=== PATIENT | female | born 2000 | race Caucasian/White ===

== ENCOUNTER 2022-10-18 15:13 | Inpatient (IN) ==
[2022-10-18 15:52] LABS: Basophils # (auto) 0.04 K/uL (0-0.2); Basophils % (auto) 0.6 %; Hematocrit (blood only) 36.4 % (37.0-47.0); Hemoglobin 12.6 g/dl (12.0-16.0); Immature Granulocytes # (auto) 0.03 K/uL (0.01-0.20); Immature Granulocytes % (auto) 0.4 %; Lymphocytes # (auto) 0.78 K/uL (1.2-3.4); Lymphocytes % (auto) 11.6 %; Mean Corpuscular Hemoglobin 27.6 pg (25.0-34.0); Mean Corpuscular Hgb Conc 34.6 g/dL (32.0-36.0); Mean Corpuscular Volume 79.8 fL (80.0-100.0); Monocytes # (auto) 0.35 K/uL (0.11-0.59); Monocytes % (auto) 5.2 %; Neutrophils # (auto) 5.53 K/uL (1.40-6.50); Neutrophils % (auto) 82.2 %; Platelet Count 312 K/uL (130-400); RDW Coefficient of Variation 13.1 % (11.5-14.5); RDW Standard Deviation 37.4 fL (36.4-46.3); Red Blood Count 4.56 M/uL (4.20-5.40); White Blood Count 6.73 K/ul (4.8-10.8)
[2022-10-18 16:09] LABS: Albumin Globulin Ratio 1.6 (0.9-2); Albumin Level 4.6 gm/dl (3.4-5.0); BUN Creatinine Ratio 16.2 (10-20); Bilirubin,Total 0.6 mg/dl (0.2-1.0); Calcium 9.8 mg/dl (8.6-10.3); Creatinine Clr Calc Pharmacy 109.8 ml/min; Est GFR (African American) 145.9 ml/min; Est GFR (Non-African American) 125.9 ml/min; Globulin 2.9 gm/dl (2.5-4.0); Total Protein 7.5 gm/dl (6.0-8.3)
[2022-10-18] MEDS ORDERED: SODIUM CHLORIDE 0.9% 1000ML 1,000 ML IV SCH (19:31)
[2022-10-18] MEDS ORDERED: LORazepam 2 MG/1 ML VIAL IV STA (19:31)
[2022-10-18] MEDS ORDERED: BENZTROPINE MESYLATE 1 MG/ML 2 ML AMP IM STA (19:31)
--- NOTE | 2022-10-18 19:41 | Emergency Department Note ---
Impression & Plan Dystonic drug reaction, Rhabdomyolysis ED Provider Note ED Provider Note NAME: MANDA EMMANUEL AGE:22 SEX: Female : 2000 ARRIVES VIA: Private vehicle INFORMANT: Patient, sister, mother ED PROVIDER(s): Jacklyn Ochoa DO CHIEF COMPLAINT: Clenching of jaw, weakness and shaking in arms and legs HPI: This is a 22-year-old female who presents emergency department due to concern for increased clenching of her jaw as well as weakness and shaking of her arms and legs. Patient states symptoms began this morning during class. She states she left and went home and symptoms continued to worsen. Patient's mother states she was seen and evaluated here 2 days ago due to significant alcohol intoxication. Upon review of this note at bedside, it was seen the patient was given Haldol and Ativan due to increased combative behavior likely secondary to alcohol intoxication. No prior similar reactions. Sister states s he did not have much to eat or drink yesterday and is also concerned about dehydration. No other recent trauma, no new medications otherwise. No recent fevers, chills, or illness. No history of hyperventilation. No history of seizures. PAST MEDICAL HISTORY:See Below PAST SURGICAL HISTORY:See Below FAMILY HISTORY:See Below SOCIAL HISTORY:See Below HOME MEDICATIONS:See Below ALLERGIES:See Below VITALS:See Below PHYSICAL EXAMINATION: GENERAL: alert, anxious appearing, well nourished, moderate distress EYE EXAM: normal conjunctiva, PERRL and EOM's grossly intact OROPHARYNX: Lips appear moist, normal-appearing dentition, patient unable to voluntarily open mouth for further evaluation NECK: supple, no nuchal rigidity, no adenopathy, non-tender, no stridor LUNGS: Clear to auscultation. Normal chest wall mechanics, no w/r/r HEART: no murmurs, S1 normal and S2 normal ABDOMEN: abdomen soft, non-tender, normo-active bowel sounds, no masses, no rebound or guarding. BACK: Back is symmetrical on inspection and there is no deformity, no midline tenderness, no CVA tenderness. SKIN: no rashes, petechiae, orbruising UPPER EXTREMITIES: upper extremities are grossly normal. FROM, nml pulses b/l. No evidence of trauma or deformity, mild appearance of carpal spasm noted bilaterally right greater than left LOWER EXTREMITIES: No pitting edema. FROM, nml pulses b/l. No evidence of trauma or deformity. Bilateral lower extremities with tense leg muscles and tremors NEURO EXAM: Normal sensorium, cranial nerves II-XII grossly intact, normal speech, no facial droop,nogross weakness of arms, no gross weakness of legs. Gross sensation intact. No ataxia. Vital Signs: reviewed and remarkable Differential Diagnosis: Dystonic reaction, hyperventilatory syndrome, seizure, electrolyte abnormality, dehydration, rhabdomyolysis, as well as others were considered MEDICAL DECISION MAKING: Patient has no contribute family history. Patient was first seen and observation began at 193 and was necessary in order to evaluate and treat the patient's symptoms, monitor for recurrence, as well as hydrate due to rhabdomyolysis. Upon re-evaluation, 6 hours of observation revealed that the patient should be admitted. Discharge from observation at 0200. This is a 22-year-old female presents emergency department due to concern for muscle tension and shaking. No history of seizures or hyperventilatory syndrome with carpopedal spasm. After mother and sister reported the patient had been seen here and was given additional medication while she was intoxicated we did review the ER visit at bedside that showed patient did receive Haldol and Ativan. I suspect this was perhaps a dystonic reaction in addition to dehydration. There may be a component of anxiety and hyperventilatory syndrome although this seems far more generalized. I do not suspect occult infectious etiology. Patient did not have true trismus. Labs drawn and sent, IV established, IV fluids started, and patient given IV Ativan and Cogentin IM. Patient had resolution of symptoms and was markedly improved. Vital signs monitored and IV fluids continued. Initial CK elevated, and a recheck after 2 L of fluids was further increased. I discussed all results with patient and mother at bedside. We discussed additional inpatient monitoring and treatment versus additional IV fluids and repeat CK in the ER. They preferred continued ER monitoring so this was performed. After he had third L and a repeat CK was still trending upward. At this time we discussed additional inpatient evaluation and management. Case discussed with hospitalist. Consultation(s): 229: Discussed with Dr. Finney. ER Treatment Provided: See below Diagnostics Interpreted By Me: -ECG: [] -Cardiac Monitoring: An order was placed for continuous cardiac monitoring. The monitor shows a rate of 98 with normal sinus rhythm. -Laboratory studies: As stated above and show below. -Imaging studies: [] Triage Nursing Note Reviewed Prior/Outside Records Reviewed -prior labs reviewed Past Med/Surg History Medical History Celiac disease Surgical History History of esophagogastroduodenoscopy Family History Father Hypertension Grandfather (Paternal) Hypertension Mother Gluten intolerance Asthma Family/Other Gluten intolerance maternal cousin-not Celiac disease Sister Asthma Other No family history of adverse response to anesthesia No family history of bleeding disorder Social History Smoking Status: Never smoker Hx Alcohol Use: Yes Alcohol Intake Frequency Comment: occasional Hx Substance Use: No marital status: Single current occupational status: student Feels Safe at Home: Yes Safety Concerns Comment: Once sober, the patient did answer the questions stating that she had no co Allergies Allergies Allergy/AdvReac Type Severity Reaction Status Date / Time gluten AdvReac Gastrointestinal Verified 10/18/22 21:40 Upset Home Meds Home Medications Medication Instructions Recorded Confirmed minocycline 100 mg tablet 100 mg PO BID 10/18/22 10/18/22 norgestimate 0.18 mg/0.215 mg/0.25 1 tab PO DAILY 10/18/22 10/18/22 mg-ethinyl estradiol 25 mcg tablet ([id number]) Results & Data (ED) Vital Signs Vital Signs - 24 hr 10/18/22 15:22 10/18/22 19:15 10/18/22 20:10 Temperature 36.8 C Temperature Source Temporal Artery Scan Pulse Rate 133 H 97 H Pulse Rate [Apical] 116 H Pulse Rate from SpO2 Sensor 99 H Pulse Rhythm Regular Pulse Rhythm [Apical] Regular Pulse Strength [Apical] Normal Respiratory Rate 20 32 H 18 Respiratory Effort / Characteristics Non-Labored Spontaneous Labored Respiratory Depth Normal Shallow Respiratory Pattern Tachypnea Blood Pressure 156/98 H 119/74 Blood Pressure [Right Arm] 153/89 H Blood Pressure Mean 117 89 Blood Pressure Mean [Right Arm] 110 Blood Pressure Position [Right Arm] Pulse Oximetry 99 99 Oxygen Delivery Method Room Air Room Air Sepsis Recent Fever Within 48 Hours No Sepsis New/Unexplained Change in Mental Status No Sepsis Action Taken by Nursing No Action Required 10/18/22 20:30 10/18/22 21:00 10/18/22 21:30 Temperature Temperature Source Pulse Rate 86 97 H 88 Pulse Rate [Apical] Pulse Rate from SpO2 Sensor 93 H 96 H 89 Pulse Rhythm Pulse Rhythm [Apical] Pulse Strength [Apical] Respiratory Rate 21 21 19 Respiratory Effort / Characteristics Respiratory Depth Respiratory Pattern Blood Pressure 118/74 Blood Pressure [Right Arm] Blood Pressure Mean 88 Blood Pressure Mean [Right Arm] Blood Pressure Position [Right Arm] Pulse Oximetry 98 100 99 Oxygen Delivery Method Sepsis Recent Fever Within 48 Hours Sepsis New/Unexplained Change in Mental Status Sepsis Action Taken by Nursing 10/18/22 20:10 10/18/22 23:36 10/19/22 00:10 Temperature Temperature Source Pulse Rate 96 H 91 H Pulse Rate [Apical] 79 Pulse Rate from SpO2 Sensor Pulse Rhythm Pulse Rhythm [Apical] Regular Pulse Strength [Apical] Normal Respiratory Rate 20 Respiratory Effort / Characteristics Non-Labored Spontaneous Respiratory Depth Normal Respiratory Pattern Regular Blood Pressure Blood Pressure [Right Arm] 130/86 Blood Pressure Mean Blood Pressure Mean [Right Arm] 100 Blood Pressure Position [Right Arm] Sitting Pulse Oximetry 98 Oxygen Delivery Method Room Air Sepsis Recent Fever Within 48 Hours Sepsis New/Unexplained Change in Mental Status Sepsis Action Taken by Nursing Laboratory Data 10/18/22 15:29 10/18/22 15:29 Lab Results 10/18/22 10/18/22 10/18/22 Range/Units 15:29 15:29 19:31 WBC 6.73 (4.8-10.8) K/ul RBC 4.56 (4.20-5.40) M/uL Hgb 12.6 (12.0-16.0) g/dl Hct 36.4 L (37.0-47.0) % MCV 79.8 L (80.0-100.0) fL MCH 27.6 (25.0-34.0) pg MCHC 34.6 (32.0-36.0) g/dL RDW Std Deviation 37.4 (36.4-46.3) fL RDW Coeff of Fausto 13.1 (11.5-14.5) % Plt Count 312 (130-400) K/uL MPV 10.0 (9.4-12.4) fL Immature Gran % (Auto) 0.4 % Neut % (Auto) 82.2 % Lymph % (Auto) 11.6 % Falls % (Auto) 5.2 % Eos % (Auto) 0.0 % Baso % (Auto) 0.6 % Neut # (Auto) 5.53 (1.40-6.50) K/uL Lymph # (Auto) 0.78 L (1.2-3.4) K/uL Falls # (Auto) 0.35 (0.11-0.59) K/uL Eos # (Auto) 0.00 (0-0.50) K/uL Baso # (Auto) 0.04 (0-0.2) K/uL Immature Gran # (Auto) 0.03 (0.01-0.20) K/uL Sodium 135 L D (136-145) mmol/L Potassium 4.0 (3.5-5.1) mmol/L Chloride 104 (98-107) mmol/L Carbon Dioxide 20 L (21-32) mmol/L Anion Gap 11 (3-11) BUN 11 (6-23) mg/dl Creatinine 0.68 (0.6-1.2) mg/dl Est Cr Clr Drug Dosing 109.8 ml/min Est GFR ( Amer) 145.9 ml/min Est GFR (Non-Af Amer) 125.9 ml/min BUN/Creatinine Ratio 16.2 (10-20) Glucose 118 H (70-99(Fasting)) mg/dl Calcium 9.8 (8.6-10.3) mg/dl Magnesium 2.0 Cancelled (1.7-2.4) mg/dl Total Bilirubin 0.6 (0.2-1.0) mg/dl AST 52 H (13-39) U/L ALT 24 (7-52) U/L Alkaline Phosphatase 109 H (34-104) U/L Total Creatine Kinase 1514 H Cancelled (26-192) U/L Total Protein 7.5 (6.0-8.3) gm/dl Albumin 4.6 (3.4-5.0) gm/dl Globulin 2.9 (2.5-4.0) gm/dl Albumin/Globulin Ratio 1.6 (0.9-2) 10/18/22 10/19/22 Range/Units 22:28 01:26 WBC (4.8-10.8) K/ul RBC (4.20-5.40) M/uL Hgb (12.0-16.0) g/dl Hct (37.0-47.0) % MCV (80.0-100.0) fL MCH (25.0-34.0) pg MCHC (32.0-36.0) g/dL RDW Std Deviation (36.4-46.3) fL RDW Coeff of Fausto (11.5-14.5) % Plt Count (130-400) K/uL MPV (9.4-12.4) fL Immature Gran % (Auto) % Neut % (Auto) % Lymph % (Auto) % Falls % (Auto) % Eos % (Auto) % Baso % (Auto) % Neut # (Auto) (1.40-6.50) K/uL Lymph # (Auto) (1.2-3.4) K/uL Falls # (Auto) (0.11-0.59) K/uL Eos # (Auto) (0-0.50) K/uL Baso # (Auto) (0-0.2) K/uL Immature Gran # (Auto) (0.01-0.20) K/uL Sodium (136-145) mmol/L Potassium (3.5-5.1) mmol/L Chloride (98-107) mmol/L Carbon Dioxide (21-32) mmol/L Anion Gap (3-11) BUN (6-23) mg/dl Creatinine (0.6-1.2) mg/dl Est Cr Clr Drug Dosing ml/min Est GFR ( Amer) ml/min Est GFR (Non-Af Amer) ml/min BUN/Creatinine Ratio (10-20) Glucose (70-99(Fasting)) mg/dl Calcium (8.6-10.3) mg/dl Magnesium (1.7-2.4) mg/dl Total Bilirubin (0.2-1.0) mg/dl AST (13-39) U/L ALT (7-52) U/L Alkaline Phosphatase (34-104) U/L Total Creatine Kinase 1725 H 1859 H (26-192) U/L Total Protein (6.0-8.3) gm/dl Albumin (3.4-5.0) gm/dl Globulin (2.5-4.0) gm/dl Albumin/Globulin Ratio (0.9-2) Administered Medications Discontinued Medications Benztropine Mesylate (Benztropine Mesylate 1 Mg/Ml 2 Ml Amp) 1 mg IM NOW STA Stop: 10/18/22 19:32 Last Admin: 10/18/22 19:40 Dose: 1 mg Documented By: RSCaroline Sodium Chloride (Nss 1000ml) 1,000 mls @ 999 mls/hr IV .Q1H1M RAS Stop: 10/18/22 20:31 Last Infusion: 10/18/22 20:10 Dose: 0 mls/hr Documented By: Admin: 10/18/22 19:41 Dose: 999 mls/hr Documented By: RSCaroline Lactated Ringer's (Lr) 1,000 mls @ 999 mls/hr IV .Q1H1M ONE Stop: 10/19/22 00:30 Last Infusion: 10/19/22 01:24 Dose: 0 mls/hr Documented By: Admin: 10/18/22 23:34 Dose: 999 mls/hr Documented By: KISHORE Lactated Ringer's (Lr) 1,000 mls @ 999 mls/hr IV .Q1H1M ONE Stop: 10/19/22 02:55 Last Admin: 10/19/22 02:32 Dose: 200 mls/hr Documented By: KISHORE Lorazepam (Lorazepam 2 Mg/1 Ml Vial) 1 mg IV NOW STA Stop: 10/18/22 19:32 Last Admin: 10/18/22 19:40 Dose: 1 mg Documented By: RSCaroline Discharge Plan Visit Data Chief Complaint: Illness Stated Complaint: NOT EATING, NOT SLEEPING ED Provider: Jacklyn Ochoa Discharge Problem: Dystonic drug reaction, Rhabdomyolysis Patient Disposition: Being Evaluated by Hospitalist Forms Stand Alone Forms: My [facility] Prescriptions Prescriptions: No Action minocycline 100 mg tablet 100 mg PO BID norgestimate-ethinyl estradiol [[id number]] 0.18/0.215/0.25 mg-25 mcg tablet 1 tab PO DAILY Rx Instructions: +EDSA Referrals [facility] [Non-Staff] -
[2022-10-18] MEDS ORDERED: LACTATED RINGER'S 1,000 ML IV ONE (23:30)
[2022-10-19] MEDS ORDERED: LACTATED RINGER'S 1,000 ML IV ONE (01:55)
[2022-10-19] MEDS ORDERED: ACETAMINOPHEN 325 MG TAB PO PRN (05:14)
[2022-10-19] MEDS: LACTATED RINGER'S 1,000 ML IV SCH ×3 (05:28→23:01)
--- NOTE | 2022-10-19 05:29 | History & Physical Report ---
Date of Service October 19, 2022 Assessment & Plan (1) Dystonic drug reaction: Plan: 22-year-old female presenting with dystonic reaction likely secondary to Haldol received earlier. Symptoms have improved with benztropine, Ativan and IV fluids. Continue to monitor for abnormal muscle movements Avoidance of Haldol or other agents that can cause EPS (2) Rhabdomyolysis: Plan: Patient with elevated CK17 20 11/02/1858 despite 3 L of IV fluid. Likely secondary to #1. Patient is dystonic reaction has seemingly resolved at this time. Continue IV fluid, LR at 125 mL/h x 2 L Repeat CK Admission and Anticipated Discharge Date Admission Date: October 19, 2022 History of Present Illness Chief Complaint: Muscle spasm Primary Care Provider: NOEMY Low Is a 22-year-old female with history of celiac disease presenting with uncontrolled muscle movements. Patient was seen in the [facility] 10/17/2022 due to acute alcohol intoxication and combative behavior. She was administered Haldol 10 mg IM at 02: 48 as well as Ativan 2 mg IM for control of agitated symptoms. She was ultimately discharged home. On 10/18/2022 patient was in class when she began to develop some stiffness and tightness in her jaw than hands.She reports feeling that her entire body, all of her muscles felt tense. She felt jittery like she was going to have a panic attack. She tried to walk home after class but reports that she was unable to walk effectively because her muscles were not responding properly.Her sister was with her after class and became concerned with the persistent abnormal muscle movements. Patient also began to develop twisting of her neck and blurry vision. She therefore came to the emergency room. Upon ER evaluation it was recognized that patient was having an acute dystonic reaction likely secondary to the Haldol she received previously. She was administered benztropine 1 mg IM with improvement in her symptoms. Initial CK was found to be elevated at 1725. Patient was administered 3 L of LR. Repeat CK increased to 1859. Patient presently feels back to normal. She denies any muscle pain or weakness. She denies any visual disturbances. No additional complaints at this time ER course: Benztropine LR x3 L Ativan Allergies Allergy/AdvReac Type Severity Reaction Status Date / Time gluten AdvReac Gastrointestinal Verified 10/18/22 21:40 Upset Home Medications Medication Instructions Recorded Confirmed Type minocycline 100 mg tablet 100 mg PO BID 10/18/22 10/18/22 History norgestimate 0.18 mg/0.215 mg/0.25 1 tab PO DAILY 10/18/22 10/18/22 History mg-ethinyl estradiol 25 mcg tablet ([id number]) Past Med/Surg History Medical History Celiac disease Surgical History History of esophagogastroduodenoscopy Family History Father Hypertension Grandfather (Paternal) Hypertension Mother Gluten intolerance Asthma Family/Other Gluten intolerance maternal cousin-not Celiac disease Sister Asthma Other No family history of adverse response to anesthesia No family history of bleeding disorder Social History Smoking Status: Never smoker Hx Alcohol Use: Yes Alcohol Intake Frequency Comment: occasional Hx Substance Use: No marital status: Single current occupational status: student Feels Safe at Home: Yes Safety Concerns Comment: Once sober, the patient did answer the questions stating that she had no co Review of Systems Review of Systems: All systems reviewed & are unremarkable except as noted in HPI & below Physical Exam Physical Exam: General: patient resting comfortably, NAD, non-toxic in appearance, AA&O x 4 Skin: warm, dry, intact, no rashes or lesions HEENT: NC/AT, PERRL, EOMI, anicteric sclera, conjunctiva without injection, external ear normal to inspection and nontender, nares patent, moist mucus membranes, dentition intact, no oropharyngeal lesions, neck supple, trachea midline, no LAD, no thyromegaly, no JVD Heart: +S1/S2, regular, no m/r/g Lungs: equal air entry bilaterally, no rales/rhonchi/wheezes Abd: +BS, soft, NT/ND, no masses/organomegaly/ascites Ext: warm, 2+ pulses in UE/LE bilaterally, no clubbing/cyanosis or edema Neuro: nonfocal, patient AA&O x 4, speech intact, no facial droop, moving all extremities on command with equal strength 5/5 Normal muscle strength and movement Results & Data Results & Data Vital Signs (Past 12 Hours) Vital Signs Pulse Pulse Resp BP BP Pulse Ox O2 Del Method 10/19/22 04:10 68 10/19/22 00:10 91 H 10/18/22 23:36 79 20 130/86 98 Room Air 10/18/22 20:10 96 H 10/18/22 21:30 88 19 118/74 99 10/18/22 21:00 97 H 21 100 10/18/22 20:30 86 21 98 10/18/22 20:10 97 H 18 119/74 99 10/18/22 19:15 116 H 32 H 153/89 H Room Air Laboratory Results Laboratory Results WBC 6.73 K/ul (4.8-10.8) 10/18/22 15: RBC 4.56 M/uL (4.20-5.40) 10/18/22 15: Hgb 12.6 g/dl (12.0-16.0) 10/18/22 15: Hct 36.4 % (37.0-47.0) L 10/18/22 15: MCV 79.8 fL (80.0-100.0) L 10/18/22 15: MCH 27.6 pg (25.0-34.0) 10/18/22 15: MCHC 34.6 g/dL (32.0-36.0) 10/18/22 15: RDW Std Deviation 37.4 fL (36.4-46.3) 10/18/22 15: RDW Coeff of Fausto 13.1 % (11.5-14.5) 10/18/22 15: Plt Count 312 K/uL (130-400) 10/18/22 15: MPV 10.0 fL (9.4-12.4) 10/18/22 15: Immature Gran % (Auto) 0.4 % 10/18/22 15: Neut % (Auto) 82.2 % 10/18/22: Lymph % (Auto) 11.6 % 10/18/22: Preston % (Auto) 5.2 % 10/18/22: Eos % (Auto) 0.0 % 10/18/22 15: Baso % (Auto) 0.6 % 10/18/22 15: Neut # (Auto) 5.53 K/uL (1.40-6.50) 10/18/22 15: Lymph # (Auto) 0.78 K/uL (1.2-3.4) L 10/18/22 15: Preston # (Auto) 0.35 K/uL (0.11-0.59) 10/18/22 15: Eos # (Auto) 0.00 K/uL (0-0.50) 10/18/22 15: Baso # (Auto) 0.04 K/uL (0-0.2) 10/18/22 15: Immature Gran # (Auto) 0.03 K/uL (0.01-0.20) 10/18/22 15: Sodium 135 mmol/L (136-145) L D 10/18/22 15: Potassium 4.0 mmol/L (3.5-5.1) 10/18/22 15: Chloride 104 mmol/L (98-107) 10/18/22 15: Carbon Dioxide 20 mmol/L (21-32) L 10/18/22 15:29 Anion Gap 11 (3-11) 10/18/22 15: BUN 11 mg/dl (6-23) 10/18/22 15: Creatinine 0.68 mg/dl (0.6-1.2) 10/18/22 15: Est Cr Clr Drug Dosing 109.8 ml/min 10/18/22 15:29 Est GFR ( Amer) 145.9 ml/min 10/18/22 15:29 Est GFR (Non-Af Amer) 125.9 ml/min 10/18/22 15:29 BUN/Creatinine Ratio 16.2 (10-20) 10/18/22 15: Glucose 118 mg/dl (70-99(Fasting)) H 10/18/22 15:29 Calcium 9.8 mg/dl (8.6-10.3) 10/18/22 15: Magnesium Cancelled 10/18/22 19:31 Total Bilirubin 0.6 mg/dl (0.2-1.0) 10/18/22 15:29 AST 52 U/L (13-39) H 10/18/22 15:29 ALT 24 U/L (7-52) 10/18/22 15:29 Alkaline Phosphatase 109 U/L (34-104) H 10/18/22 15:29 Total Creatine Kinase 1859 U/L (26-192) H 10/19/22 01:26 Total Protein 7.5 gm/dl (6.0-8.3) 10/18/22 15:29 Albumin 4.6 gm/dl (3.4-5.0) 10/18/22 15:29 Globulin 2.9 gm/dl (2.5-4.0) 10/18/22 15:29 Albumin/Globulin Ratio 1.6 (0.9-2) 10/18/22 15:29 SARS-CoV-2, RNA, NAAT NEGATIVE (NEGATIVE) 10/19/22 03:25 PG Care Time/CCT Total # of Minutes Spent Total Time Spent with Patient: Total time spent is greater than 50% in coordination of care (as documented) at patient's floor/unit and/or counseling patient: Coding Level of Care Code 03660 INT INP/OBS CARE 2/55MIN Diagnoses Dystonic drug reaction G24.02 Rhabdomyolysis M62.82
[2022-10-19] MEDS: MINOCYCLINE HCL 50 MG CAP PO SCH ×2 (09:08→21:26)
[2022-10-19 13:54] LABS: BUN Creatinine Ratio 4.7 (10-20); Calcium 8.6 mg/dl (8.6-10.3); Creatinine Clr Calc Pharmacy 133.1 ml/min; Est GFR (African American) 148.9 ml/min; Est GFR (Non-African American) 128.5 ml/min; Potassium 3.4 mmol/L (3.5-5.1)
[2022-10-19 14:10] LABS: Ferritin 39.7 ng/ml (8-388)
[2022-10-19] MEDS ORDERED: POTASSIUM CHLORIDE CRTAB 20 MEQ TABCR PO STA (14:18)
--- NOTE | 2022-10-20 01:10 | Hospitalist Progress Note ---
Date of Service October 19, 2022 Assessment & Plan (1) Dystonic drug reaction: Plan: likely secondary to Haldol received the AM of 10/17/22 symptoms improved/resolved with benztropine haldol added to allergy list cont to monitor (2) Rhabdomyolysis: Plan: likely 2nd to muscle injury from her dystonic reaction to haldol the CPK has not trended down just yet - needs more time & IVF to do such no evidence of renal compromise with stable creatinine cont LR at 150cc/hr repeat CPK in am repeat BMP am no evidence of any compartment syndrome any location (3) Alcoholic intoxication: Plan: ER visit on the AM of 10/17/22 for such with blood etoh level of nearly 400 received ativan + haldol, per records, due to severe agitation ultimately d/c to home after a period of observation (4) Hypokalemia: Plan: replace PO + IV repeat BMP am recent mag level wnl (5) Iron deficiency: Plan: Fe studies c/w Fe deficiency pt made aware that she would benefit from supplementation Fe deficiency either 2nd to heavy menses and/or her celiac disease (6) Celiac disease: Plan: gluten free diet Plan pt's mother updated at bedside change observation to full admission status Admission and Anticipated Discharge Date Admission Date: October 19, 2022 Subjective patient states that all muscle symptoms have resolved she feels back to baseline she is eating/drinking ok she is anxious to leave the hospital 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 this afternoon during rounds her mother was at bedside following the visit I rechecked her CPK, BMP, and AST the CPK returned relatively the same value as the prior level AST was same BMP was stable I went back a 2nd time to tell the patient and her mother that I wished to keep her 1 additional night to hydrate her and ensure the CPK was trending down patient was very upset and crying, stating she wanted to be at her apartment Review of Systems Review of Systems: musculo - denies myalgia Physical Exam Physical Exam: gen - tearful, upset but otherwise NAD mouth - MMM neck - no JVD heart - RRR, s1 s2, no murmur lungs - CTA b/l abd - soft NT ND BS+ ext - no edema pulses 2+ b/l musculo - arms and legs without any swelling or muscle abnormality Results & Data Results & Data Vital Signs (Past 12 Hours) Vital Signs Temp Pulse Resp BP Pulse Ox O2 Del Method 10/19/22 22:45 37.3 C 70 16 107/63 100 Room Air 10/19/22 16:12 37.4 C 75 16 105/64 99 Room Air Laboratory Results Laboratory Results - last 24 hr 10/19/22 10/19/22 10/19/22 01:26 03:25 13:20 Sodium 141 Potassium 3.4 L Chloride 108 H Carbon Dioxide 25 Anion Gap 8 BUN 3 L Creatinine 0.64 Est Cr Clr Drug Dosing 133.1 Est GFR ( Amer) 148.9 Est GFR (Non-Af Amer) 128.5 BUN/Creatinine Ratio 4.7 L Glucose 146 H Calcium 8.6 Iron 35 TIBC 375 Unsaturated IBC 340 Transferrin % Sat 9 L Ferritin 39.7 AST 54 H Total Creatine Kinase 1859 H 1860 H SARS-CoV-2, RNA, NAAT NEGATIVE PG Care Time/CCT Total # of Minutes Spent Total Time Spent with Patient: Total time spent is greater than 50% in coordination of care (as documented) at patient's floor/unit and/or counseling patient: Coding Level of Care Code None Diagnoses Dystonic drug reaction G24.02 Rhabdomyolysis M62.82 Alcoholic intoxication F10.920 Complication of substance-induced condition: uncomplicated Hypokalemia E87.6 Iron deficiency E61.1 Celiac disease K90.0 (3) Alcoholic intoxication Complication of substance-induced condition: uncomplicated Qualified Code(s): F10.920 - Alcohol use, unspecified with intoxication, uncomplicated
[2022-10-20] MEDS: LACTATED RINGER'S 1,000 ML IV SCH (05:26)
[2022-10-20 08:59] LABS: BUN Creatinine Ratio 7.8 (10-20); Calcium 9.1 mg/dl (8.6-10.3); Creatinine Clr Calc Pharmacy 133.1 ml/min; Est GFR (African American) 148.9 ml/min; Est GFR (Non-African American) 128.5 ml/min; Potassium 3.6 mmol/L (3.5-5.1)
[2022-10-20] MEDS: MINOCYCLINE HCL 50 MG CAP PO SCH (09:00)
--- NOTE | 2022-10-20 12:19 | Discharge Summary ---
Date of Service October 20, 2022 Admission HPI Per Admitting Provider Ana Low Is a 22-year-old female with history of celiac disease presenting with uncontrolled muscle movements. Patient was seen in the [facility] 10/17/2022 due to acute alcohol intoxication and combative behavior. She was administered Haldol 10 mg IM at 02: 48 as well as Ativan 2 mg IM for control of agitated symptoms. She was ultimately discharged home. On 10/18/2022 patient was in class when she began to develop some stiffness and tightness in her jaw than hands.She reports feeling that her entire body, all of her muscles felt tense. She felt jittery like she was going to have a panic attack. She tried to walk home after class but reports that she was unable to walk effectively because her muscles were not responding properly.Her sister was with her after class and became concerned with the persistent abnormal muscle movements. Patient also began to develop twisting of her neck and blurry vision. She therefore came to the emergency room. Upon ER evaluation it was recognized that patient was having an acute dystonic reaction likely secondary to the Haldol she received previously. She was administered benztropine 1 mg IM with improvement in her symptoms. Initial CK was found to be elevated at 1725. Patient was administered 3 L of LR. Repeat CK increased to 1859. Patient presently feels back to normal. She denies any muscle pain or weakness. She denies any visual disturbances. No additional complaints at this time ER course: Benztropine LR x3 L Ativan Principal Diagnosis Dystonic drug reaction secondary to Haldol, mild rhabdomyolysis, alcohol intoxication, hypokalemia Discharge Exam General-alert and oriented x3, no fevers, no chills HEENT-head atraumatic and normocephalic, pupils equal and reactive to light, extraocular muscles intact Neck-no lymphadenopathy or thyromegaly, trachea midline Chest-clear to auscultation percussion. No rales wheezing or rhonchi Cardiac-regular rate and rhythm, normal S1 and S2 Abdomen-normal bowel sounds, nontender, no hepatosplenomegaly Extremities-no cyanosis, clubbing, or edema Neuro-cranial nerves II through XII intact, motor and sensory function within normal limits, strength symmetrical , no focal deficits Psych-normal affect, normal mood Discharge Data Allergies Allergy/AdvReac Type Severity Reaction Status Date / Time gluten AdvReac Gastrointestinal Verified 10/18/22 21:40 Upset haldol AdvReac Severe Muscle Pain Uncoded 10/19/22 13:43 Hospital Course (1) Dystonic drug reaction: likely secondary to Haldol received the AM of 10/17/22. Now resolved. Haldol has been added to her allergy list cont to monitor (2) Rhabdomyolysis: likely 2nd to muscle injury from her dystonic reaction to haldol. Mild on admission. CK is down to 962 with IV fluids. This will eventually normalize. (3) Alcoholic intoxication: Now resolved. She has a counseling session later today. (4) Hypokalemia: Corrected (5) Iron deficiency: Fe studies c/w Fe deficiency. Pt made aware that she would benefit from supplementation (6) Celiac disease: gluten free diet Plan Home today, October 20 Total Time Total Time Spent Total Time Spent (In Minutes): 35 minutes Discharge Plan Discharge Items Patient Disposition: Home - Self-Care Reason For Visit: RHABDOMYOLYSIS, DYSTONIA Discharge Diagnosis: Dystonic reaction to Haldol, alcohol intoxication, mild rhabdomyolysis, hypokalemia Activity: Resume your previous activity Non-emergency contact: Primary Care Provider Call non-emergency contact if: your symptoms worsen Follow-up/Referrals: Baylee Daniel MD [Primary Care Provider] - Diet: Regular Addtl Attending Provider Instructions: Alcohol counseling is highly recommended Pending Studies at Discharge: No Stand-Alone Forms: [facility] BillShrink, Smoking Cessation Medications and DC Order Prescriptions: Continued minocycline 100 mg tablet 100 mg PO BID norgestimate-ethinyl estradiol [Dcb-Bd-Tefpql] 0.18/0.215/0.25 mg-25 mcg tablet 1 tab PO DAILY Rx Instructions: +EDSA Discharge Orders: Discharge Order (Routine); Ordered 10/20/22 Ordered By: Kun Martinez Admission Data Admit Date/Time: 10/19/22 14:43 Attending Provider: Kun Martinez Admit Provider: Carole Finney Primary Care Provider: Baylee Daniel Coding Level of Care Code 38945 INP/OBS DISCH >30 MIN Diagnoses Dystonic drug reaction G24.02 Rhabdomyolysis M62.82 Alcoholic intoxication F10.920 Complication of substance-induced condition: uncomplicated Hypokalemia E87.6 Iron deficiency E61.1 Celiac disease K90.0
== END 2022-10-20 12:37 | disposition home or self-care (01) | DRG 92 ==
LOC: ED 15:13 → 3E 15:13 → SUATTDRO 10-19 03:04 → 3E 10-19 05:09 → SUATTDRO 10-19 14:43